=== PATIENT | male | born 1980 | race Caucasian/White ===

== ENCOUNTER → 2020-12-08 | Outpatient (CLI) | payer BC | END | disposition home or self-care (01) | LOC: LAB 07:51 → LAB SHORT 07:51 | DX: C44.319 Basal cell carcinoma of skin of other parts of face (principal) | CPT/HCPCS: 88305 ==

== ENCOUNTER → 2021-04-21 | Outpatient (CLI) | payer BC | LOC: LAB SHORT 10:54 → LAB 10:54 | DX: D48.5 Neoplasm of uncertain behavior of skin (principal); D22.5 Melanocytic nevi of trunk | CPT/HCPCS: 88305 ==

== ENCOUNTER → 2021-05-04 | Outpatient (CLI) | payer BC ==
[2021-05-04 15:39] LABS: Hematocrit 50.5 % (37.0-53.0); Hemoglobin 17.1 g/dL (13.5-17.5); Mean Corpuscular HGB 30.6 pg (26.0-34.0); Mean Corpuscular HGB Conc 33.9 g/dL (31.5-36.5); Mean Corpuscular Volume 91 fL (80-100); Mean Platelet Volume 10.1 fL (9.1-12.4); Platelet Count 260 K/mm3 (150-400); RDW Coefficient Variation 11.9 % (11.7-14.2); RDW Standard Deviation 39.8 fL (35.1-46.3); Red Blood Cell Count 5.58 M/mm3 (4.30-5.90); White Blood Cell Count 5.52 K/mm3 (4.00-11.30)
== END | disposition home or self-care (01) ==
LOC: LAB SHORT 07:45 → LAB 07:45
PROVIDERS: Naturopath
DX: E34.9 Endocrine disorder, unspecified (principal)
CPT/HCPCS: 84403; 85027

== ENCOUNTER → 2021-10-27 | Outpatient (CLI) | payer BC | END | disposition home or self-care (01) | LOC: LAB SHORT 11:18 → PLD 11:18 → LAB 11:18 | DX: D22.5 Melanocytic nevi of trunk (principal); L73.9 Follicular disorder, unspecified | CPT/HCPCS: 88305 ==

== ENCOUNTER → 2023-12-07 | Outpatient (CLI) | payer OTHER ==
[2023-12-07 15:24] LABS: Hematocrit 50.6 % (37.0-53.0); Hemoglobin 17.2 g/dL (13.5-17.5); Mean Corpuscular HGB 31.6 pg (26.0-34.0); Mean Corpuscular Volume 93 fL (80-100); Mean Platelet Volume 9.9 fL (9.1-12.4); Platelet Count 266 K/mm3 (150-400); RDW Coefficient Variation 11.9 % (11.7-14.2); Red Blood Cell Count 5.45 M/mm3 (4.30-5.90); White Blood Cell Count 5.89 K/mm3 (4.00-11.30)
== END ==
LOC: LAB SHORT 14:11 → LAB 14:11
PROVIDERS: Naturopath
DX: R79.89 Other specified abnormal findings of blood chemistry (principal); F90.9 Attention-deficit hyperactivity disorder, unspecified type
CPT/HCPCS: 83525; 84403; 84443; 85027